=== PATIENT | female | born 1950 | race Caucasian/White ===

== ENCOUNTER 2017-08-09 17:48 | Emergency (ER) | payer MEDICARE ==
--- NOTE | ~2017-08-09 | CR181 ---
[facility] A Service of [facility] & [facility] RADIOLOGY TEXT RESULTS PATIENT: DARA MCKENNA LOCATION: [facility] : 54 UNIT #: [id number] AGE: [address]: Nadiya Espitia APRN SEX: F ORDER DR: [id number] [facility] [address] [place], [place] [address] [id number] E MR#: [id number] Acc #: [id number] NAME: DARA MCKENNA : 1950 SEX: F STUDY DATE/TIME: 08/09/2017 19:47 UNIT: [facility] ROOM: STUDY DESCRIPTION: CR Lumbar Spine 2 or 3 Views Attending Physician: Nadiya Espitia A.P.R.N. Ordering Physician: Nadiya Espitia A.P.R.N. Primary Care Physician: Camila Peña M.D. MEDICAL IMAGING REPORT This report is preliminary unless electronic signature is present EXAM 3 views lumbar spine DATE 08/09/2017 HISTORY 66-year-old female with lumbar spine pain after falling 2 weeks ago. COMPARISON Lumbar spine radiographs 02/16/2007. FINDINGS No acute lumbar spine fracture or subluxation is seen. Diminished disc height is present at each lumbar level. Vacuum disc phenomenon is present at L1-2, L3-4, L4-5. There is lumbar levoscoliosis. Facet arthropathy is present bilaterally at L4-5, right greater than left, and at L5-S1. Osteopenia. No sacroiliac joint diastasis. IMPRESSION 1. No acute lumbar spine findings. 2. Lumbar dextroscoliosis with multilevel loss of disc height and marginal osteophyte formation. 3. Facet arthropathy at L4-5 and L5-S1, greatest on the right at L4-5. Dictated by... Bhumika Schumacher M.D. THIS IS AN ELECTRONICALLY VERIFIED REPORT Bhumika Schumacher M.D. at 08/11/2017 9:52 AM [facility]/alyssa TD: 08/10/2017 14:17 [facility] A Service of [facility] & [facility] RADIOLOGY TEXT RESULTS PATIENT: DARA MCKENNA LOCATION: [facility] : 54 UNIT #: [id number] AGE: [address]: Nadiya Espitia APRN SEX: F ORDER DR: JOB #: [id number] MEDICAL IMAGING REPORT Page 1 of 1 COPY
--- NOTE | ~2017-08-09 | CR151 ---
[facility] A Service of [facility] & [facility] RADIOLOGY TEXT RESULTS PATIENT: DARA MCKENNA LOCATION: [facility] : 54 UNIT #: [id number] AGE: [address]: Nadiya Espitia APRN SEX: F ORDER DR: [id number] [facility] [address] [place], [place] [address] [id number] E MR#: [id number] Acc #: [id number] NAME: DARA MCKENNA : 1950 SEX: F STUDY DATE/TIME: 08/09/2017 19:50 UNIT: [facility] ROOM: STUDY DESCRIPTION: CR Hip Min 2 Views Rt Attending Physician: Nadiya Espitia A.P.R.N. Ordering Physician: Nadiya Espitia A.P.R.N. Primary Care Physician: Camila Peña M.D. MEDICAL IMAGING REPORT This report is preliminary unless electronic signature is present EXAM AP pelvis with frog view of the right hip DATE 08/09/2017 HISTORY Right hip pain after falling 2 weeks ago. COMPARISON Right hip radiographs 02/16/2007. FINDINGS No pelvic fracture, hip fracture or dislocation is seen. Hip joint spaces appear preserved. Osteopenic changes. Lower lumbar facet arthropathy. No sacroiliac joint pubic symphysis diastasis. IMPRESSION No acute abnormality of the pelvis or the right hip. Dictated by... Bhumika Schumacher M.D. THIS IS AN ELECTRONICALLY VERIFIED REPORT Bhumika Schumacher M.D. at 08/11/2017 9:52 AM [facility]/alyssa TD: 08/10/2017 14:20 JOB #: [id number] MEDICAL IMAGING REPORT Page 1 of 1 COPY
--- NOTE | ~2017-08-09 | CR213 ---
[facility] A Service of [facility] RADIOLOGY TEXT RESULTS PATIENT: DARA MCKENNA LOCATION: [facility] : 54 UNIT #: [id number] AGE: [address]: Nadiya Espitia APRN SEX: F ORDER DR: [id number] [facility] [address] [place], [place] [address] [id number] E MR#: [id number] Acc #: [id number] NAME: DARA MCKENNA : 1950 SEX: F STUDY DATE/TIME: 08/09/2017 19:25 UNIT: [place] ROOM: STUDY DESCRIPTION: CR Ribs Unilateral 2 View Rt Attending Physician: Nadiya Espitia A.P.R.N. Ordering Physician: Nadiya Espitia A.P.R.N. Primary Care Physician: Camila Peña M.D. MEDICAL IMAGING REPORT This report is preliminary unless electronic signature is present EXAM PA chest with right rib detail series (5 images) DATE 08/09/2017 HISTORY Right rib pain for 2 weeks after falling. Former smoker. COMPARISON AP portable chest 02/27/2016. FINDINGS Mild cardiac enlargement. No acute airspace disease. Benign appearing enchondroma in the left humeral neck. No displaced right rib fractures identified. No pleural effusion or pneumothorax. IMPRESSION 1. No acute chest findings. No evidence of displaced right rib fracture. 2. Mild cardiomegaly. 3. Benign appearing enchondroma within the left humeral neck. Dictated by... Bhumika Schumacher M.D. THIS IS AN ELECTRONICALLY VERIFIED REPORT Bhumika Schumacher M.D. at 08/11/2017 9:52 AM [facility]/alyssa TD: 08/10/2017 14:14 JOB #: [id number] [facility] A Service [facility] RADIOLOGY TEXT RESULTS PATIENT: DARA MCKENNA LOCATION: [facility] : 54 UNIT #: [id number] AGE: [address]: Nadiya Espitia APRN SEX: F ORDER DR: MEDICAL IMAGING REPORT Page 1 of 1 COPY
--- NOTE | ~2017-08-09 | CR243 ---
[facility] A Service of [facility] & [facility] RADIOLOGY TEXT RESULTS PATIENT: DARA MCKENNA LOCATION: [facility] : 54 UNIT #: [id number] AGE: [address]: Nadiya Espitia APRN SEX: F ORDER DR: [id number] [facility] [address] [place], [place] [address] [id number] E MR#: [id number] Acc #: [id number] NAME: DARA MCKENNA : 1950 SEX: F STUDY DATE/TIME: 08/09/2017 19:26 UNIT: [facility] ROOM: STUDY DESCRIPTION: CR Thoracic Spine 3 Views Attending Physician: Nadiya Espitia A.P.R.N. Ordering Physician: Nadiya Espitia A.P.R.N. Primary Care Physician: Camila Peña M.D. MEDICAL IMAGING REPORT This report is preliminary unless electronic signature is present EXAM Three views thoracic spine 08/09/2017 HISTORY 66-year-old female with thoracic spine pain for 2 weeks after a fall. FINDINGS No acute thoracic vertebral body fracture or subluxation is seen. There is mild thoracic dextroscoliotic curvature. Mild marginal osteophyte formation in the [id number] thoracic spine. Osteopenia. IMPRESSION 1. Mid thoracic dextroscoliosis. 2. Generalized osteopenia and mild multilevel degenerative endplate spurring. 3. No acute thoracic spine findings. Dictated by... Bhumika Schumacher M.D. THIS IS AN ELECTRONICALLY VERIFIED REPORT Bhumika Schumacher M.D. at 08/11/2017 9:52 AM [facility]/norma TD: 08/10/2017 13:48 JOB #: [id number] MEDICAL IMAGING REPORT Page 1 of 1 COPY
[~2017-08-09 17:48] MED LIST: ACETAMINOPHEN PO; AMITRYPTYLINE PO; ASPIRINEC PO; BENADRYL25 M1 PO; COREG PO; DARVOCET-N 1001 TAB PO; DITROPAN PO; MEDROL4 MG/DOSE- PO; NEURONTIN PO
== END 2017-08-09 21:03 | disposition home or self-care (01) ==
LOC: CFTX 17:48 → CED 17:48 → CFTX 19:26
DX: S39.012A Strain of muscle, fascia and tendon of lower back, initial encounter (principal); S29.012A Strain of muscle and tendon of back wall of thorax, initial encounter; S70.01XA Contusion of right hip, initial encounter; S20.211A Contusion of right front wall of thorax, initial encounter; J44.9 Chronic obstructive pulmonary disease, unspecified; I25.2 Old myocardial infarction; Z88.8 Allergy status to other drugs, medicaments and biological substances; W01.0XXA Fall on same level from slipping, tripping and stumbling without subsequent striking against object, initial encounter
CPT/HCPCS: 71100; 72072; 72100; 73502; 99283